=== PATIENT | female | born 1990 | race Caucasian/White ===

== ENCOUNTER 2018-08-09 22:54 | Inpatient (IN) | payer BC ==
--- OUTSIDE RECORDS SUMMARY | 2018-08-09 22:56 | XMS REPORT ---
:1990 Author Organization e[employer] Care Team Providers Name Role Phone Alfredo Anderson Provider Role Unavailable Allergies No Known Allergies Problems Problem Type Condition Code Onset Dates Condition Status Problem Encounter for supervision of other Z34.82 Active normal in second trimester Medications No Known Medications Results No Known Results Summary Purpose eClinicalWorks Submission
--- OUTSIDE RECORDS SUMMARY | 2018-08-09 22:56 | XMS REPORT ---
:1990 Author Organization [employer] Care Team Providers Name Role Phone Alfredo Anderson Provider Role Unavailable Allergies No Known Allergies Problems Problem Type Condition Code Onset Dates Condition Status Assessment Encounter for supervision of other Z34.82 Active normal in second trimester Problem Encounter for supervision of other Z34.82 Active normal in second trimester Medications Medication Code Code Instructions Start End Date Status Dosage System Date [facility] NDC 17791067277 Active not defined 1 Plus NDC 0 Active not defined 1 Results No Known Results Summary Purpose eClinicalWorks Submission
--- OUTSIDE RECORDS SUMMARY | 2018-08-09 22:56 | XMS REPORT ---
:1990 Author Organization [employer] Care Team Providers Name Role Phone Alfredo Anderson Provider Role Unavailable Allergies, Adverse Reactions, Alerts Substance Reaction Event Type Seasonal Allergies Info Not Available Non Drug Allergy Problems Problem Type Condition Code Onset Dates Condition Status Assessment Encounter for supervision of other Z34.81 Active normal in first trimester Assessment Amenorrhea N91.2 Active Assessment Encounter for supervision of Z34.91 Active low-risk in first trimester Assessment Encounter to determine O36.80X0 Active viability of , single or unspecified fetus Medications Medication Code System Code Instructions Start Date End Date Status Dosage ZyrTEC NDC 0 Active not defined 1 Plus NDC 0 Active not defined 1 Results Name Result Date Reference Range Unit Abnormality Flag URINALYSIS AUTO W/O SCOPE (25540) ----NIT neg 20180107 ----URO 0.2 20180107 ----PROTEIN neg 20180107 ----pH 6.0 20180107 ----BLO neg 20180107 ----GLUCOSE neg 20180107 ----RAFITA neg 20180107 ----BILIRUBIN neg 20180107 ----KETONES 1+ 20180107 ----SPECIFIC GRAVITY 1.025 20180107 Summary Purpose eClinicalWorks Submission
--- OUTSIDE RECORDS SUMMARY | 2018-08-09 22:57 | XMS REPORT ---
:1990 Author Organization [employer] Care Team Providers Name Role Phone Alfredo Anderson Provider Role Unavailable Allergies No Known Allergies Problems Problem Type Condition Code Onset Dates Condition Status Assessment Anemia affecting in third O99.013 Active trimester Problem Anemia affecting in third O99.013 Active trimester Problem Encounter for supervision of other Z34.83 Active normal , third trimester Problem Need for Tdap vaccination Z23 Active Assessment Encounter for supervision of other Z34.83 Active normal , third trimester Problem Needs flu shot Z23 Active Problem Encounter for supervision of other Z34.82 Active normal in second trimester Medications Medication Code Code Instructions Start End Status Dosage System Date Date 1 NDC 0 Active not Plus 1 defined ZyrTEC [facility] 55450846697 Active not defined Ferralet 90 [facility] 13333781886 90-1 MG Orally Active 1 tablet Once a day Results No Known Results Summary Purpose eClinicalWorks Submission
--- OUTSIDE RECORDS SUMMARY | 2018-08-09 22:57 | XMS REPORT ---
[...] Start End Status Dosage System Date Date Ferralet 90 [facility] 07600050616 90-1 MG Orally Active 1 tablet Once a day 1 NDC 0 Active not Plus 1 defined ZyrTEC [facility] 70462653592 Active not defined Results No Known Results Summary Purpose eClinicalWorks Submission
--- OUTSIDE RECORDS SUMMARY | 2018-08-09 22:57 | XMS REPORT ---
:1990 Author Organization eClinicalWorks Care Team Providers Name Role Phone Alfredo Anderson Provider Role Unavailable Allergies No Known Allergies Problems Problem Type Condition Code Onset Dates Condition Status Problem Encounter for supervision of other Z34.82 Active normal in second trimester Problem Needs flu shot Z23 Active Assessment Encounter for supervision of other Z34.82 Active normal in second trimester Medications Medication Code Code Instructions Start End Date Status Dosage System Date [facility] 07198494732 Active not defined 1 Plus NDC 0 Active not defined 1 Results No Known Results Summary Purpose eClinicalWorks Submission
--- OUTSIDE RECORDS SUMMARY | 2018-08-09 22:57 | XMS REPORT ---
[...] Status Dosage System Date Date Ferralet 90 [facility] [place] 54416565808 90-1 MG Orally Active 1 tablet Once a day 1 NDC 0 Active not Plus 1 defined ZyrTEC [facility] [place] 07607074358 Active not defined Results No Known Results Summary Purpose eClinicalWorks Submission
--- OUTSIDE RECORDS SUMMARY | 2018-08-09 22:57 | XMS REPORT ---
:1990 Author Organization eClinicalWorks Care Team Providers Name Role Phone Alfredo Anderson Provider Role Unavailable Allergies No Known Allergies Problems Problem Type Condition Code Onset Dates Condition Status Problem Anemia affecting in third O99.013 Active [...] Start End Date Status Dosage System Date [facility] NDC 49588570844 Active not defined 1 Plus NDC 0 Active not defined 1 Results No Known Results Summary Purpose eClinicalWorks Submission
--- OUTSIDE RECORDS SUMMARY | 2018-08-09 22:57 | XMS REPORT ---
:1990 Author Organization eClinicalWorks Care Team Providers Name Role Phone Alfredo Anderson Provider Role Unavailable Allergies No Known Allergies Problems Problem Type Condition Code Onset Dates Condition Status Assessment Anemia affecting in third O99.013 Active trimester Assessment Need for Tdap vaccination Z23 Active Problem Anemia affecting in third O99.013 Active [...] NDC 0 Active not Plus 1 defined Ferralet 90 [facility] 31875466910 90-1 MG Orally Jun 17, Active 1 tablet Once a day 2018 ZyrTEC [facility] 17072127160 Active not defined Results No Known Results Immunizations Vaccine Administration Date TDAP > 7 Years-Adacel Jun 17, 2018 Summary Purpose eClinicalWorks Submission
--- OUTSIDE RECORDS SUMMARY | 2018-08-09 22:57 | XMS REPORT ---
[...] other Z34.82 Active normal in second trimester Assessment Needs flu shot Z23 Active Medications Medication Code Code Instructions Start End Date Status Dosage System Date 1 Plus NDC 0 Active not defined 1 ZyrTEC NDC 16620134482 Active not defined Results No Known Results Immunizations Vaccine Administration Date Afluria Mar 11, 2018 Summary Purpose eClinicalWorks Submission
--- OUTSIDE RECORDS SUMMARY | 2018-08-09 22:57 | XMS REPORT ---
[...] End Status Dosage System Date Date 1 ND 0 Active not Plus 1 defined Ferralet 90 [facility] 53351974204 90-1 MG Orally Active 1 tablet Once a day ZyrTEC [facility] 54511816490 Active not defined Results No Known Results Summary Purpose eClinicalWorks Submission
[2018-08-09] MEDS ORDERED: BUTORPHANOL 1 MG/ML INJ IV PRN (23:33)
[2018-08-09] MEDS ORDERED: PROMETHAZINE 25 MG/ML VIAL IV PRN (23:33)
[2018-08-09] MEDS ORDERED: Ringers Lactate 1,000 ML IV PRN (23:33)
[2018-08-09] MEDS ORDERED: Ringers Lactate 1,000 ML IV SCH (23:45)
[2018-08-09] MEDS ORDERED: OXYTOCIN/LR 20 UNIT/1,000 ML BAG IV SCH (23:45)
[2018-08-10] MEDS ORDERED: FENTANYL CITR 100 MCG/2 ML IV ONE (00:17)
[2018-08-10] MEDS ORDERED: FENTANYL/BUPIVACAINE/NS/PF 200 MCG/100 ML BAG EP PRN (00:19)
[2018-08-10 00:20] LABS: Absolute Lymphocytes (CBC) 1.6 K/uL (0.7-4.9); Absolute Monocytes 0.7 K/uL (0.1-1.3); Absolute Neutrophil 7.9 K/uL (1.8-8.0); Basophils % 0.3 % (0-1.3); Eosinophils % 0.3 % (0-4.4); Hematocrit 38.6 % (36.0-45.0); Lymphocytes % 15.4 % (15.3-44.8); MPV 10.2 fL (7.6-11.3); RBC Red Blood Cell Count 4.24 M/uL (3.86-4.86)
[2018-08-10 00:24] LABS: RPR Titer ND
[2018-08-10 00:40] VITALS: BMI 34.6
[2018-08-10] MEDS ORDERED: FENTANYL CITR 100 MCG/2 ML ONE (00:45)
[2018-08-10] MEDS ORDERED: FENTANYL/BUPIVACAINE/NS/PF 200 MCG/100 ML BAG EP ONE (00:46)
[2018-08-10] MEDS ORDERED: EPINEPHRINE/PF 1 MG/ML AMP ONE (00:54)
[2018-08-10] MEDS ORDERED: LIDOCAINE 2% MPF 5 ML VIAL ONE (00:54)
[2018-08-10] MEDS ORDERED: ONDANSETRON 4 MG (ODT) TAB PO ONE (00:55)
[2018-08-10] MEDS ORDERED: ONDANSETRON 4 MG (ODT) TAB ONE (00:58)
[2018-08-10] MEDS ORDERED: METHYLERGONOVINE 0.2MG/ML AMP IM ONE ×2 (03:02→07:00)
[2018-08-10] MEDS ORDERED: LIDOCAINE 1% MPF 30 ML VIAL ONE (03:02)
--- NOTE | 2018-08-10 04:08 | P.OBGYNHP ---
Certification for Inpatient Patient admitted to: Inpatient With expected LOS: >2 Midnights Patient will require the following post-hospital care: None Practitioner: I am a practitioner with admitting privileges, knowledge of patient current condition, hospital course, and medical plan of care. Services: Services provided to patient in accordance with Admission requirements found in Title 42 Section 412.3 of the Code of Federal Regulations Patient History Date of Service: 08/20/18 Reason for admission: LABOR History of Present Illness: Patient is a 28-year-old 2 para 0010 who presents at 38 weeks and 4 days gestation in active labor. She had spontaneous rupture of membranes at 2230 and was found to be 4 cm dilated upon admission. She denies vaginal bleeding. She reports good movements. She has obtained care with me beginning at 13 weeks gestation. She has been compliant with visits. No issues throughout the course. Rh positive. GBS negative. Last ultrasound was done on June 26. No issues noted. Anatomy ultrasound was normal. Allergies No Known Allergies Allergy (Unverified 08/09/18 09:03) Home Medications: Mfe048/Iron/l-Mefol/Omega3/Dha [ Plus-Dha Combo Pack] 1 each PO DAILY - Past Medical/Surgical History Has patient received pneumonia vaccine in the past: No Past Medical History: Patient denies medical history -: T&A 1998 - Family History Family History: Reviewed- Non-Contributory - Family History Father -: Hypertension Mother -: Hypertension - Social History Smoking Status: Never smoker Alcohol use: No CD- Drugs: No Caffeine use: No Place of Residence: Home Review of Systems 10-point ROS is otherwise unremarkable Physical Examination - Vital Signs Temperature: 97.3 F Blood Pressure: 131/83 Pulse: 97 Respirations: 18 - General General: Alert, Oriented x3, Moderate distress HEENT: Atraumatic Neck: Supple Respiratory: Normal air movement Cardiovascular: No edema, Normal pulses Breasts: Normal configuration, Normal contours, Symmetrical Gastrointestinal: Other (Gravid) Musculoskeletal: No clubbing, No swelling Integumentary: No rashes, No breakdown Neurological: Normal speech - Female Pelvic External genitalia: Normal Vagina: Normal, [place], Moist Cervix: Dilation (9-10), Effacement (100), station (0) Uterus: Gravid Adnexa: Unable to evaluate - Obstetrics heart rate tracing: Category 2 Contractions: Frequency (Regular) Amniotic membrane: SROM (Clear fluid) Laboratory Data (last 24 hrs) 08/09/18 23:25: WBC 10.3, Hgb 12.7, Hct 38.6, Plt Count 218 Assessment and Plan - Plan Patient is a 28-year-old 2 para 0010 who presents at 38 weeks and 4 days gestation in active labor. Epidural has been placed now fully dilated. Patient will begin pushing. Continuous maternal monitoring. Routine care will be provided. Discharge Plan: Home Plan to discharge in: 48 Hours - Advance Directives Does patient have a Living Will: No Does patient have a Durable POA for Healthcare: No
--- NOTE | 2018-08-10 04:10 | P.OP ---
Date of Service: 08/10/18 Findings and Operative Technique Patient delivered a viable female infant in cephalic presentation over a midline episiotomy on August 10, 2018 at 3:47 a.m.. Once the infant's head was delivered shoulder dystocia was in countered. Make Max procedure was performed. The anterior shoulder was then delivered. The remainder of the baby was delivered in conjunction with patient's pushing and gentle traction. Once the was delivered nose and mouth were suctioned with a suction bulb. There was no nuchal cord present. No meconium was seen. The cord was clamped and cut and was handed off to nursery nurse for evaluation. Attention was then turned to the umbilical cord. Cord blood was obtained. Placenta was then delivered with gentle traction. Placenta was noted to be intact. Uterine fundus was then massaged. Some bleeding was still noted therefore methargen was given IM. Attention was then turned to the episiotomy which was noted to be second-degree. This was repaired with a 2 0 Vicryl in usual fashion. EBL was 300 cc. 1st stage of labor was 4 hr and 30 min. 2nd stage was 39 min. Apgars were 8 and 9. Weight was found to be 10 lb 9 oz. Both mom and baby are doing well. Mom is bonding well with the baby and breast- feeding.
[2018-08-10] MEDS ORDERED: KETOROLAC 30 MG/ML INJ ONE (04:24)
[2018-08-10] MEDS ORDERED: METHYLERGONOVINE 0.2 MG TAB PO ONE (06:56)
[2018-08-10] MEDS ORDERED: METHYLERGONOVINE 0.2MG/ML AMP IM PRN (06:59)
[2018-08-10] MEDS ORDERED: METHYLERGONOVINE 0.2 MG TAB PO PRN (07:00)
[2018-08-10] MEDS ORDERED: IBUPROFEN 400 MG TAB PO PRN (07:03)
[2018-08-10] MEDS ORDERED: ACETAMINOPHEN 500 MG TAB PO PRN (07:04)
[2018-08-10 09:11] LABS: Absolute Lymphocytes (CBC) 1.4 K/uL (0.7-4.9); Absolute Monocytes 1.7 K/uL (0.1-1.3); Absolute Neutrophil 17.8 K/uL (1.8-8.0); Basophils % 0.4 % (0-1.3); Hematocrit 38.3 % (36.0-45.0); Lymphocytes % 6.8 % (15.3-44.8); MPV 10.2 fL (7.6-11.3); Monocytes % 8.1 % (3.3-12.3); RBC Red Blood Cell Count 4.26 M/uL (3.86-4.86)
[2018-08-10 10:06] LABS: Blood Morphology Comment NOT SEEN (NOT SEEN); Platelet Estimate ADEQ; Platelets, Giant MODERATE
[2018-08-10 21:50] LABS: RPR (Rapid Plasma Reagin) NON-REACT (NON-REACT)
[2018-08-11] MEDS ORDERED: IBUPROFEN 200 MG TAB PO ONE (07:12)
[2018-08-14 05:29] LABS: HBsAG Nonreactive (Nonreactive)
[2018-08-20 10:12] VITALS: BP 131/83; TEMP 97.3
== END 2018-08-11 10:45 | disposition home or self-care (01) | DRG 807 ==
LOC: L&D 22:54 → 2ND-WC 23:08
PROVIDERS: ADMIT Student in an Organized Health Care Education/Training Program; ATTEND Student in an Organized Health Care Education/Training Program
PROC: 10E0XZZ Delivery of Products of Conception, External Approach (ICD-10-PCS; principal; 2018-08-10)
PROC: 0KQM0ZZ Repair Perineum Muscle, Open Approach (ICD-10-PCS; 2018-08-10)
PROC: 0W8NXZZ Division of Female Perineum, External Approach (ICD-10-PCS; 2018-08-10)
DX: O66.0 Obstructed labor due to shoulder dystocia (principal); Z37.0 Single live birth; O70.1 Second degree perineal laceration during delivery; Z3A.38 38 weeks gestation of pregnancy
CPT/HCPCS: 36415; 85025; 86592; 86901; 87340; 88307; 99218; G0433; J0171; J2210; J2590; J3010